=== PATIENT | female | born 1995 ===

== ENCOUNTER 2017-01-20 20:07 | Inpatient (IN) | payer BC, MEDICAID ==
[2017-01-20 21:35] LABS: Hematocrit 37 % (35-47); Hemoglobin 11.9 g/dl (12.0-16.0); Mean Corpuscular HGB Conc 32 g/dl (31-36); Mean Corpuscular Hemoglobin 25 pg (27-31); Mean Corpuscular Volume 79 fL (80-97); Mean Platelet Volume 11 um3 (7.4-10.4); Red Blood Count 4.72 10^6/ul (4.0-5.4); Red Cell Distribution Width 15 % (10.5-15); White Blood Count 9.4 10^3/ul (3.5-10.8)
[2017-01-21] MEDS ORDERED: Oxytocin in LR* 20 UNITS/1,000 ML BAG IVPB ONE (02:20)
[2017-01-21] MEDS ORDERED: Witch Hazel PAD* JAR TOPICAL PRN (03:21)
[2017-01-21] MEDS ORDERED: Acetaminophen TAB* 325 MG PO PRN (03:21)
[2017-01-21] MEDS ORDERED: Tetan/Diph/Pertus SYR(Tdap)* 0.5 ML SYR(BOOSTRIX) use SYR IM ONE (03:21)
[2017-01-21] MEDS ORDERED: Dibucaine 1% 28.35 GM TUBE PR PRN (03:21)
[2017-01-21] MEDS ORDERED: Glycerin ADULT SUPP PR PRN (03:21)
[2017-01-21] MEDS ORDERED: Ammonia Inhalant* 1 EA AMP ONE (05:24)
[2017-01-21] MEDS ORDERED: Simethicone TAB* 80 MG TAB.CHEW PO SCH (08:30)
[2017-01-21] MEDS: Docusate CAP* 100 MG PO SCH ×3 (08:36→21:00)
[2017-01-21] MEDS: Ibuprofen TAB* 600 MG PO PRN ×2 (14:19→21:51)
[2017-01-22 07:22] VITALS: BP 114/53
[2017-01-22] MEDS: Docusate CAP* 100 MG PO SCH (07:35)
[2017-01-22 07:49] LABS: Hematocrit 25 % (35-47); Hemoglobin 8.1 g/dl (12.0-16.0); Mean Corpuscular HGB Conc 33 g/dl (31-36); Mean Corpuscular Hemoglobin 26 pg (27-31); Mean Corpuscular Volume 79 fL (80-97); Mean Platelet Volume 10 um3 (7.4-10.4); Red Blood Count 3.15 10^6/ul (4.0-5.4); Red Cell Distribution Width 16 % (10.5-15); White Blood Count 10.6 10^3/ul (3.5-10.8)
[2017-01-22] MEDS ORDERED: RHO D Immune Globulin (HUMAN)* 300 MCG = 1,500 I.U. INJ IM ONE (08:02)
[2017-01-22] MEDS: Ibuprofen TAB* 600 MG PO PRN (08:07)
[2017-01-22] MEDS ORDERED: Ferrous Gluconate TAB* 324 MG TAB PO SCH (09:00)
== END 2017-01-22 10:35 | disposition home or self-care (01) | DRG 560 ==
LOC: MCHOBOUT 20:07 → MCHOB 20:57
PROVIDERS: ADMIT Obstetrics & Gynecology; ATTEND Obstetrics & Gynecology
PROC: 10E0XZZ Delivery of Products of Conception, External Approach (ICD-10-PCS; principal; 2017-01-21)
PROC: 10907ZC Drainage of Amniotic Fluid, Therapeutic from Products of Conception, Via Natural or Artificial Opening (ICD-10-PCS; 2017-01-21)
PROC: 0KQM0ZZ Repair Perineum Muscle, Open Approach (ICD-10-PCS; 2017-01-21)
PROC: 4A1HXCZ Monitoring of Products of Conception, Cardiac Rate, External Approach (ICD-10-PCS; 2017-01-21)
DX: O48.0 Post-term pregnancy (principal); D64.9 Anemia, unspecified; O34.219 Maternal care for unspecified type scar from previous cesarean delivery; Z3A.40 40 weeks gestation of pregnancy; Z37.0 Single live birth; O69.1XX0 Labor and delivery complicated by cord around neck, with compression, not applicable or unspecified; O70.1 Second degree perineal laceration during delivery; O90.81 Anemia of the puerperium; O66.0 Obstructed labor due to shoulder dystocia
CPT/HCPCS: 36415; 85025; 85461; 86850; 86900; 86901; A9270-GY; J2790